=== PATIENT | female | born 1940 | race Caucasian/White ===

== ENCOUNTER → 2016-05-06 | Day surgery (SDC) | payer MEDICARE ==
--- NOTE | 2016-05-03 18:29 | MH ---
cc: Krishan LIZARRAGA M.D. DATE OF ADMISSION 05/06/2016 ADMISSION DIAGNOSIS Torn medial meniscus left knee now for arthroscopic surgery left knee. ADMISSION HISTORY AND PHYSICAL A pleasant 75-year-old female who is being admitted today for torn medial meniscus of the left knee for which she is now undergoing arthroscopic surgery. PAST MEDICAL HISTORY Other past history: 1. She has a history of chronic lymphocytic leukemia. 2. Sciatica. 3. Sleep apnea. 4. Stomach ulcers. 5. Thyroid problems. 6. Hypogammaglobulinemia. 7. Spinal stenosis. CURRENT MEDICATIONS Include: 1. Vitamin D3. 2. B complex. 3. Aspirin. 4. Calcium. 5. Co-Q10. 6. Magnesium. 7. Inositol. 8. B17. 9. Triamterene. 10. Hydrochlorothiazide. 11. Potassium. 12. Jennifer-Colace. 13. Estradiol. 14. Chlor-Trimeton. 15. Macrobid. 16. Levothyroxine. 17. . 18. Ocuvite. 19. Prolia. 20. Tramadol. 21. Aleve. 22. Tylenol. 23. ___ for her face. PAST SURGICAL HISTORY Include: 1. Appendectomy. 2. Hysterectomy. 3. Tonsillectomy and adenoidectomy. 4. Closed reduction left wrist fracture. 5. Open reduction right clavicle fracture. 6. Kyphosis surgery of her number 8 vertebra. REVIEW OF SYSTEMS Noncontributory. FAMILY HISTORY Noncontributory. SOCIAL HISTORY She does not smoke or drink. ALLERGIES NO KNOWN ALLERGIES. PHYSICAL EXAMINATION GENERAL: We find a 75-year-old female who is 4' 7" and weighs 139 pounds. She is well-developed, well-nourished, alert and oriented times three complaining of pain in her left knee. VITAL SIGNS: Blood pressure 118/82, pulse 89 regular, respirations 20, temperature 98.1, pulse oximetry 97% on room air. HEENT: Eyes PERRL, EOMI. Ears, nose, mouth clear. NECK: Supple. LUNGS: Clear. HEART: Regular rate. ABDOMEN: Soft. Positive bowel sounds, nontender. EXTREMITIES: Reveal the left knee be tender over the lateral joint surface with a positive Martinez sign. She is neurovascularly intact to her toes. MRI did reveal a torn posterior horn of the medial meniscus. IMPRESSION Time is torn medial meniscus, posterior horn. PLAN Admission for arthroscopic surgery today. The patient given a prescription for postoperative pain control in the office. J. Stan Lizarraga MD JRDevi/KK /5:50 PM /6:18 PM
[~2016-05-06] MED LIST: ACETAMINOPHEN 1000 MG/100 ML VIAL IV ONE; ACETAMINOPHEN/HYDROcodone 325 MG/5 MG TAB PO PRN; ASPI1TAB69 PO; ASPI81TA81 PO; B-COTAB27 PO; BUPIVACAINE/EPINEPHRINE 0.25% PF 30 ML VIAL ONE; CALC1TAB79 PO; CHLORHEXIDINE GLUCONATE 4% SOLN 120 ML BTL TOP SCH; CHOL50006 PO; COQ1200C PO; D 50CAP PO; DENO60P SQ; DEXI60CA PO; DO NOT ADM ANY ANTICOAGULANT DRUGS XX PRN; DYAZ37.5 PO; FAMOTIDINE 20 MG/2 ML VIAL ONE; FLUTI110I INH; INOS500T; INSULIN HUMAN REGULAR 1,000 UNITS/10 ML VIAL SQ PRN; K-TA10TA PO; LACTATED RINGER'S 1000 ML IV SCH; LEVO25TA4 PO; MACR100C2 PO; MACR100C3 PO; MAGN400T14 PO; MEDI220T PO; MEPERIDINE HCL 50 MG/ML VIAL IM PRN; METOPROLOL TARTRATE 25 MG TAB PO PRN; MIDAZOLAM HCL 2 MG/2 ML VIAL ONE; OCUTTAB PO; OCUTTAB2 PO; ONDANSETRON HCL 4 MG/2 ML VIAL IV PUSH ONE; ONDANSETRON ODT 4 MG TAB PO PRN; PERI8.6T PO; PROPOFOL 200 MG/20 ML AMP IV ONE; SLOW160T10 PO; SODIUM CHLORID 0.9% 500 ML IV SCH; TRAM50TA PO; UBID200C3 PO; VAGI10TA VAGINAL; VERA27.5 NASAL; VITACAP7 PO; ZETI10TA5 PO; [UNRECOGNIZED DRUG - CODE] PO; ceFAZolin 2 GM PREMIX 50 ML IV SCH
[2016-05-06 05:50] VITALS: BP 149/91; PULSE 70; RESP 16; TEMP 97.9; O2SAT 98
[2016-05-06 06:43] LABS: AUTOMATED NEUTROPHIL # 2.1 TH/MM3 (1.8-7.7); BASOPHIL % 0.9 % (0.0-2.0); EOSINOPHIL # 0.1 TH/MM3 (0-0.4); EOSINOPHIL % 1.8 % (0.0-4.0); HEMATOCRIT 36.4 % (35.0-46.0); HEMO FLAGS DIFF FINAL; LYMPH % 42.3 % (9.0-44.0); MEAN CELL VOLUME 80.8 FL (80.0-100.0); MEAN CORPUSCULAR HEMOGLOBIN 26.2 PG (27.0-34.0); MEAN CORPUSCULAR HGB CONC 32.5 % (32.0-36.0); MONO % 11.6 % (0.0-8.0); NEUT % 43.4 % (16.0-70.0); PLATELET COUNT 209 TH/MM3 (150-450); RED BLOOD COUNT 4.51 MIL/MM3 (4.00-5.30); WHITE BLOOD COUNT 4.8 TH/MM3 (4.0-11.0)
[2016-05-06 06:54] LABS: INTERNATIONAL NORMALIZED RATIO 0.9 RATIO
[2016-05-06 06:55] LABS: BLOOD, URINE NEG (NEG); COMMENT (UR) CULTURE INDICATED; CULTURE IF INDICATED CULTURE INDICATED; GLUCOSE,URINE NEG (NEG); KETONE, URINE NEG (NEG); MUCUS URINE FEW /lpf (OCC); NITRITE,URINE NEG (NEG); PH, URINE 6.5 (5.0-8.5); SQUAMOUS EPITHELIAL CELL URINE <1 /hpf (0-5); TRANSITIONAL EPI CELLS, URINE 1 /hpf; URINE COLOR YELLOW (YELLW/STRAW)
[2016-05-06 07:01] LABS: ALKALINE PHOSPHATASE 57 U/L (45-117); TOTAL BILIRUBIN ADULT 0.3 MG/DL (0.2-1.0)
[2016-05-06 07:07] LABS: BLOOD UREA NITROGEN 21 MG/DL (7-18)
[2016-05-06 07:08] LABS: ALT (GPT) 25 U/L (10-53); ANION GAP 7 MEQ/L (5-15); AST (GOT) 24 U/L (15-37); BICARBONATE 26.9 MEQ/L (21.0-32.0); CHLORIDE 107 MEQ/L (98-107); GLOMERULAR FILTRATION RATE 62 ML/MIN (>89); POTASSIUM 3.9 MEQ/L (3.5-5.1); SODIUM (NA) 141 MEQ/L (136-145)
[2016-05-06 10:20] VITALS: TEMP 97.4
[2016-05-06 10:50] VITALS: BP 140/75; PULSE 66; RESP 18; O2SAT 96
--- NOTE | 2016-05-06 22:38 | EKG ---
Date Performed: 05/06/2016 Time Performed: 06:43:10 PTAGE: 75 years EKG: Sinus rhythm WITH SINUS ARRHYTHMIA BORDERLINE LEFT AXIS DEVIATION LOW QRS VOLTAGE IN PRECORDIAL LEADS PATTERN CON SISTENT WITH PULMONARY DISEASE ABNORMAL ECG PREVIOUS TRACING : 05/01/2007 12.04 DOCTOR: Beverly Pastor Interpretating Date/Time 05/06/2016 22:36:06
--- NOTE | 2016-05-10 18:11 | MP ---
cc: Krishan LIZARRAGA M.D. DATE OF SURGERY: 05/06/2016 PREOPERATIVE DIAGNOSIS: Internal derangement of the left knee. 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 SURGERY PREFORMED: Arthroscopy, excision of posterior horn tear lateral meniscus and ArthroCare shaving of chondromalacia weightbearing surface of the distal femur left knee. SURGEON Krishan Lizarraga MD V BELT SKIVER: MS Leeann 3. ANESTHESIA LMA. PROCEDURE: The patient was brought to the operating room and placed on the operating room table in the supine position. After successful induction of general anesthesia, the patient's left leg was prepped and draped in the usual manner. The knee was then placed in a knee mirza and tightened. Arthroscopic examination was then performed by making a stab wound over the proximal superior and medial aspect of the patellofemoral joint for insertion of the inflow cannula and fluid, followed by stab wounds over the medial and lateral joint margins respectively for insertion of the arthroscope, shaver and probe. Arthroscopic examination was then performed which revealed the findings were intact, medial compartment, intact femoral patellofemoral joint and the lateral compartment found to have a large tear of posterior horn and some chondromalacia involving the weight bearing surface of the distal femur above the lateral sides. The torn meniscus and chondromalacia were repaired using ArthroCare cutter shaver probe to afford smooth surface rest the knee joint found to be intact was irrigated copiously lactated Ringer's solution. Excess fluid removed 10 cc of 0.25% Marcaine plain inserted knee joint. Skin approximately interrupted 3-0 nylon suture. Wet and then dry dressing applied to the wound followed by Xeroform gauze, sterile dressing and thigh-high Ortiz wrap. No tourniquet utilized. Estimated blood loss 10 cc. Sponge and instrument count correct. The patient of procedure well left the operating in satisfactory condition. MD JOSSELIN Gunderson/henry /9:33 AM /5:56 PM
== END | disposition home or self-care (01) ==
LOC: HSDC 05:31
PROVIDERS: ATTEND Surgery
DX: S83.282A Other tear of lateral meniscus, current injury, left knee, initial encounter (principal); M94.262 Chondromalacia, left knee; I10 Essential (primary) hypertension; E78.5 Hyperlipidemia, unspecified; R82.79 Other abnormal findings on microbiological examination of urine
CPT/HCPCS: 01400; 29881; 80053; 81001; 85025; 85610; 85730; 87086; 93005; J0131; J2250; J2405; J3010

== ENCOUNTER → 2016-09-19 | Day surgery (SDC) | payer MEDICARE ==
[~2016-09-19] MED LIST changes: -ACETAMINOPHEN 1000 MG/100 ML VIAL IV ONE; -ACETAMINOPHEN/HYDROcodone 325 MG/5 MG TAB PO PRN; -ASPI1TAB69 PO; -B-COTAB27 PO; -BUPIVACAINE/EPINEPHRINE 0.25% PF 30 ML VIAL ONE; -CALC1TAB79 PO; -CHLORHEXIDINE GLUCONATE 4% SOLN 120 ML BTL TOP SCH; -CHOL50006 PO; -COQ1200C PO; -DENO60P SQ; -DO NOT ADM ANY ANTICOAGULANT DRUGS XX PRN; -FAMOTIDINE 20 MG/2 ML VIAL ONE; -INSULIN HUMAN REGULAR 1,000 UNITS/10 ML VIAL SQ PRN; +IOHEXOL 180 MG/ML 20 ML VIAL (for RAD DIAG) EPIDURAL ONE; -LACTATED RINGER'S 1000 ML IV SCH; +LIDOCAINE HCL 1% 30 ML VIAL NERV BLOCK ONE; -MACR100C2 PO; -MEPERIDINE HCL 50 MG/ML VIAL IM PRN; -METOPROLOL TARTRATE 25 MG TAB PO PRN; -MIDAZOLAM HCL 2 MG/2 ML VIAL ONE; -OCUTTAB2 PO; -ONDANSETRON HCL 4 MG/2 ML VIAL IV PUSH ONE; -ONDANSETRON ODT 4 MG TAB PO PRN; -SODIUM CHLORID 0.9% 500 ML IV SCH; +TRIAMCINOLONE ACETONIDE 40 MG/ML VIAL NERV BLOCK ONE; -ceFAZolin 2 GM PREMIX 50 ML IV SCH
--- NOTE | 2016-09-20 23:36 | M6 ---
cc: JOANN ROSE M.D. DATE 09/19/16 DATE OF 1940 PROCEDURE PERFORMED Fluoroscopically guided right L5-S1 and right S1 transforaminal epidural steroid injection. History and physical was completed and signed. Consent was signed. Procedure site was marked. Medications were listed and reconciled. Pain score was recorded. Allergies were noted. Time out was taken. Fluoroscopy time was recorded where applicable. Sedation was administered or directed by Dr. Rose. The patient was given oxygen. The patient was monitored by a registered nurse. Total procedure time was greater than 15 minutes. IV was started, blood pressure cuff, pulse oximeter and EKG were applied. The patient was placed in the prone position on a Saul table, sedated with small amounts of propofol titrated to effect. Vital signs were monitored and remained stable throughout the procedure. The lumbar area was prepped with alcohol and 10% Betadine solution, draped with sterile drapes. Fluoroscopy was used both AP and lateral projection to clearly visualize the right L5-S1 and right S1 neural foramen. Separate sterile 3-1/2-inch 22-gauge Chiba needles were advanced into the dorsal aspect of each foramen. There was negative aspiration for blood or any other type of fluid and at each location the patient was given 3 mL of 1% Xylocaine, 3 mL of Omnipaque and 40 milligrams of Kenalog at each location. Following this the patient was taken to the recovery room with stable vital signs, neurologically intact. WMD MONA Do/KATYA /9:09 AM /11:22 PM
== END | disposition home or self-care (01) ==
LOC: PHSDC 06:59
PROVIDERS: ATTEND Pain Medicine Interventional Pain Medicine
DX: M54.16 Radiculopathy, lumbar region (principal); I10 Essential (primary) hypertension
CPT/HCPCS: 64483; 64484; 99152; J3301; Q9965